=== PATIENT | male | born 1995 | race Caucasian/White ===

== ENCOUNTER 2018-09-16 10:37 | Emergency (ER) | payer OTHER ==
--- NOTE | 2018-09-16 10:55 | EDPHY ---
H & P Stated Complaint: cp Time Seen by Provider: 09/16/18 10:39 HPI/ROS: HPI: This is a 22-year-old male who presents with Chief Complaint: Chest pain Location: Chest Quality: Pain Duration: Lasted 15 min Signs and Symptoms: no shortness of breath at rest, no shortness of breath on exertion, no cough, no palpitations, no lower extremity edema, no wheezing, no orthopnea, no paroxysmal nocturnal dyspnea, no fever, no injury/trauma, no hemoptysis, no carpal pedal spasms, + cardiac awareness Timing: Acute, slowly resolved Severity: [id number] Context: Patient has a history of scoliosis, presents at the [facility] with complaints of sudden onset of left anterior chest pain while he was brushing his teeth around 730 this morning. The discomfort was nonradiating in nature and lasted approximately 15 min. The pain self- resolved. During the episode he felt nauseous and lightheaded. He did complain of mild shortness of breath. He reports that he has been under considerable stress slightly. Family history shows coronary artery disease in maternal grandmother. Nonsmoker. No drug use. No recent long distance travel. EKG at the [facility] showed inverted T-waves, no ischemic changes. Has not eaten any food or drank anything this morning. Modifying Factors: None Comment: ROS: A comprehensive 10 system review of systems is otherwise negative aside from elements mentioned in the history of present illness. MEDICAL/SURGICAL/SOCIAL HISTORY: Medical history: Generally healthy. Does not take any regular medications. Surgical history: Denies Social history: Employed. Nonsmoker. CONSTITUTIONAL: Anxious, thin, young adult white male, awake and alert, no obvious distress HEENT: Atraumatic and normocephalic, PERRL, EOMI. Wears glasses. Nares patent ; no rhinorrhea; no nasal mucosal edema. Tympanic membranes clear. Oropharynx clear, no exudate and moist pink mucosa. Airway patent. No lymphadenopathy. No meningismus. Cardiovascular: Normal S1/S2, sinus tachycardia regular rhythm, without murmur rub or gallop. PULMONARY/CHEST: Symmetrical and nontender. Clear to auscultation bilaterally. Good air movement. No accessory muscle usage. ABDOMEN: Soft, nondistended, nontender, no rebound, no guarding, no peritoneal signs, no masses or organomegaly. No CVAT. EXTREMITIES: 2/2 pulses, strength 5/5, no deformities, no clubbing, no cyanosis or edema. NEUROLOGICAL: no focal neuro deficits. GCS 15. SKIN: Warm and dry, hives noted to upper chest; no erythema. no rash. Good capillary refill. Source: Patient Exam Limitations: No limitations - Personal History Current Tetanus Diphtheria and Acellular Pertussis (TDAP): Yes - Medical/Surgical History Hx Asthma: No Hx Chronic Respiratory Disease: No Hx Diabetes: No Hx Cardiac Disease: No Hx Renal Disease: No Hx Cirrhosis: No Hx Alcoholism: No Hx HIV/AIDS: No Hx Splenectomy or Spleen Trauma: No Other PMH: denies - Social History Smoking Status: Never smoked Constitutional: Initial Vital Signs Temperature (C) 36.9 C 09/16/18 10:39 Heart Rate 106 H 09/16/18 10:39 Respiratory Rate 18 09/16/18 10:39 Blood Pressure 129/80 H 09/16/18 10:39 O2 Sat (%) 98 09/16/18 10:39 O2 Delivery Mode Room Air Allergies/Adverse Reactions: minocycline Allergy (Verified 09/16/18 10:38) Penicillins Allergy (Verified 09/16/18 10:37) Home Medications: Medication Instructions Recorded NK [No Known Home Meds] 09/16/18 Medical Decision Making ED Course/Re-evaluation: Vital signs reviewed and show mild tachycardia. Placed on surveillance system monitor with sinus tachycardia. EKG ordered CXR not ordered as resolution of pain upon arrival to ER, I doubt pneumothorax Laboratory studies ordered including D-dimer. 1105: EKG my read shows sinus tachycardia with a rate of 105 beats per minute. Inverted T-waves in V1 and V2. No acute ischemic changes. No arrhythmias. No heart block. Hives during initial examination lead to anxiety component and noncardiac chest pain. 1140: Labs reviewed. No signs of leukocytosis/anemia/platelet dysfunction/LES/ electrolyte imbalance/VTE/ACS. HEART score= low risk I reviewed the share decision making instrument with the patient, including risk of MACE, and the patient (and family) that are in agreement with the chosen disposition. This patient was seen under the supervision of my secondary supervising physician. I evaluated care for this patient independently. Discussed this patient with Dr. Mahoney. Differential Diagnosis: Chest pain including but not limited to myocardial ischemia, pulmonary embolus, chest wall pain, pleural inflammation and pulmonary infectious causes. - Data Points Laboratory Results: Laboratory Results 09/16/18 11:14 09/16/18 11:14 09/16/18 09/16/18 09/16/18 11:19 11:14 11:14 WBC RBC Hgb Hct MCV MCH MCHC RDW Plt Count MPV Neut % (Auto) Lymph % (Auto) Warrick % (Auto) Eos % (Auto) Baso % (Auto) Nucleat RBC Rel Count Absolute Neuts (auto) Absolute Lymphs (auto) Absolute Monos (auto) Absolute Eos (auto) Absolute Basos (auto) Absolute Nucleated RBC Immature Gran % Immature Gran # D-Dimer < 0.27 ug/mLFEU ug/mLFEU (0.00-0.50) Sodium 139 mEq/L mEq/L (135-145) Potassium 4.5 mEq/L mEq/L (3.3-5.0) Chloride 101 mEq/L mEq/L (97-110) Carbon Dioxide 27 mEq/l mEq/l (22-31) Anion Gap 11 mEq/L mEq/L (6-14) BUN 16 mg/dL mg/dL (7-23) Creatinine 0.9 mg/dL mg/dL (0.7-1.3) Estimated GFR > 60 Glucose 95 mg/dL mg/dL (70-100) Calcium 9.8 mg/dL mg/dL (8.5-10.4) POC Troponin I 0.01 ng/mL ng/mL (0.00-0.08) 09/16/18 11:14 WBC 5.47 10^3/uL 10^3/uL (3.80-9.50) RBC 6.21 10^6/uL 10^6/uL (4.40-6.38) Hgb 18.0 g/dL H g/dL (13.7-17.5) Hct 51.4 % H % (40.0-51.0) MCV 82.8 fL fL (81.5-99.8) MCH 29.0 pg pg (27.9-34.1) MCHC 35.0 g/dL g/dL (32.4-36.7) RDW 11.9 % % (11.5-15.2) Plt Count 232 10^3/uL 10^3/uL (150-400) MPV 10.2 fL fL (8.7-11.7) Neut % (Auto) 77.6 % H % (39.3-74.2) Lymph % (Auto) 14.8 % L % (15.0-45.0) Warrick % (Auto) 5.9 % % (4.5-13.0) Eos % (Auto) 1.1 % % (0.6-7.6) Baso % (Auto) 0.4 % % (0.3-1.7) Nucleat RBC Rel Count 0.0 % % (0.0-0.2) Absolute Neuts (auto) 4.25 10^3/uL 10^3/uL (1.70-6.50) Absolute Lymphs (auto) 0.81 10^3/uL L 10^3/uL (1.00-3.00) Absolute Monos (auto) 0.32 10^3/uL 10^3/uL (0.30-0.80) Absolute Eos (auto) 0.06 10^3/uL 10^3/uL (0.03-0.40) Absolute Basos (auto) 0.02 10^3/uL 10^3/uL (0.02-0.10) Absolute Nucleated RBC 0.00 10^3/uL 10^3/uL (0-0.01) Immature Gran % 0.2 % % (0.0-1.1) Immature Gran # 0.01 10^3/uL 10^3/uL (0.00-0.10) D-Dimer Sodium Potassium Chloride Carbon Dioxide Anion Gap BUN Creatinine Estimated GFR Glucose Calcium POC Troponin I Point of Care Test Results: Chemistry 09/16/18 11:19 POC Troponin I 0.01 ng/mL ng/mL (0.00-0.08) Departure - Departure Disposition: Home, Routine, Self-Care Clinical Impression: Non-cardiac chest pain Condition: Good Instructions: Noncardiac Chest Pain (ED) Additional Instructions: Please refrain from drinking caffeinated beverages. Establish care with primary care provider. Return to the ER immediately if you experience new, continued or worsened chest pain, chest pain that radiates, chest pain accompanied by exertion or associated with shortness of breath, sweating, nausea, dizziness, back pain, or any other symptoms that concern you. Referrals: [facility],. [Clinic] - 3-4 days, if not improved
[2018-09-16 11:25] LABS: PLATELET COUNT 232 10^3/uL (150-400)
[2018-09-16 11:55] VITALS: BP 119/81
--- NOTE | 2018-09-16 15:14 | CPEKG ---
Test Reason : OPEN Blood Pressure : / mmHG Vent. Rate : 105 BPM Atrial Rate : 105 BPM P-R Int : 136 ms QRS Dur : 080 ms QT Int : 325 ms P-R-T Axes : 075 047 028 degrees QTc Int : 430 ms Sinus tachycardia Confirmed by Delia Mahoney ([id number]) on 09/16/2018 3:13:48 PM Referred By: Confirmed By:Delia Mahoney
== END 2018-09-16 12:01 | disposition home or self-care (01) ==
DX: R07.9 Chest pain, unspecified (principal); Z82.49 Family history of ischemic heart disease and other diseases of the circulatory system
CPT/HCPCS: 84484-PO